=== PATIENT | female | born 2000 | race Caucasian/White ===

== ENCOUNTER 2022-07-30 00:31 | Day surgery (SDC) | payer OTHER, SELFPAY ==
[2022-07-18 09:26] VITALS: BMI 20.2
--- NOTE | 2022-07-18 09:32 | PC.NURSE ---
Report to the Outpatient Waiting Room, entrance under the green pavilion located off [facility], at time 07:30AM on date 07-30-22. Planned Procedure Time: 09:30AM. Time changes happen often and if your time is changed the preop area will call you the afternoon before. - You and your visitor will be asked to self-screen and do not enter if you have any COVID symptoms. - Only one visitor is requested with a max of two and NO children visitors are allowed at this time. - The patient visitor may be requested to leave or wait in car when not with patient due to distancing restrictions. - A mask is optional within the hospital. Patients may have clear liquids (water, carbonated beverages, clear teas, apple juice) until 3 hours prior to surgery (06:30AM) with a maximum of 20 ounces. - No food from midnight until time of surgery. Take the following medications with a SIP of water the morning of surgery: CONTROL Medications to discontinue per physician N/A Please no make-up, nail romanian, hairspray, perfume, deodorant, or body powder the day of surgery. No jewelry (including any body piercings) or valuables the day of surgery, leave them at home. Please take a shower or bath the night before, or the morning of, surgery with an antibacterial soap. Wear comfortable, loose fitting clothing. - Jewelry must be removed prior to entering the operating room. Rings and piercings that are not removed may be cut off. - The hospital will not accept responsibility for valuables. - Please leave all valuables, including medications, at home the day of surgery. If you are going home after surgery, a licensed city driver must drive you home. - NO public transportation without another adult if you receive anesthesia. - We recommend that an adult stay with you for 24 hours following discharge. - We also recommend that you do not drive, make important decision, drink alcoholic beverages, or take any drugs that were not prescribed by your health care provider for at least 24 hours after your discharge time. Follow any additional instructions given to you from your surgeon. If you or anyone in your household have experienced Covid symptoms in the past week, please notify your surgeon or the nurse liaison at the phone number below for possible testing. Telephone instructions given toPand asked if any additional questions and then verbalized understanding. Patient advised to call surgeon office or pre surgery nurse liaison [phone] if any additional questions.
[2022-07-30] VITALS (8 sets, daily range): BP systolic 96–125; BP diastolic 63–79; PULSE 74–105; RESP 12–20; TEMP 36.7–36.9; O2SAT 98–100
[2022-07-30] MEDS: ACETAMINOPHEN 500 MG TABLET 1000 MG PO (08:10)
[2022-07-30] MEDS: LACTATED RINGERS 1,000 ML 30 ML IV CONT (08:18)
--- NOTE | 2022-07-30 08:30 | P.PNAN_ITS ---
Anes - Initial Pre Proc Eval Procedure: Operation Date: 07/30/22 09:30 Proposed Procedures p Bilateral Tonsillectomy - Isacc Valente MD Date/Time: 07/30/22 08:30 Surgeon: Isacc Valente MD Pre Op Diagnosis: Chronic Tonsilitis Patient Data Age: 22 Gender: F Height: 1.6 m Weight: 55.65 kg Last Vital Signs Temp 98.1 F 07/30/22 07:55 Pulse 105 H 07/30/22 07:55 Resp 16 07/30/22 07:55 BP 117/73 07/30/22 07:55 Pulse Ox 99 07/30/22 07:55 O2 Del Method Room Air 07/30/22 07:55 Allergies Allergy/AdvReac Type Severity Reaction Status Date / Time No Known Allergies Allergy Verified 07/30/22 08:07 Home Medications Medication Instructions Recorded Confirmed Type norethindrone acetate 1 mg-ethinyl 1 tablet PO DAILY 07/18/22 07/30/22 History estradiol 20 mcg tablet valacyclovir 1 gram tablet 1 mg PO DAILY 07/18/22 07/30/22 History Patient hx anesthesia problems: none Family hx anesthesia problems: none Results Review: All pre-operative results and documents have been reviewed as part of the pre- operative evaluation. [facility] Social History Social History Smoking status: Never smoker Second hand tobacco smoke exposure: No Alcohol intake: never Substance use: never Substance use type: does not use Living arrangements: with family Spiritual care concerns: No Anes - Eval Final PreProcedure Day of Procedure 07/30/22 08:30 Patient weight: normal Heart: regular rate and rhythm Lungs: clear to auscultation Airway: Mallampati scale class II Neurological: alert and oriented Last oral intake: >/= 8 hours ASA classification: I Emergent: no Anesthetic plan: proceed Anesthesia type and monitoring: general ETT and standard monitoring Results Review: All pre-operative results and documents have been reviewed as part of the pre- operative evaluation. Informed Consent: The patient's anesthetic plan and its attendant risks and benefits were discussed with the patient/family/POA. Questions were solicited and answers provided to the satisfaction of the patient/family/POA.
--- NOTE | 2022-07-30 09:05 | PM.IMHP ---
H&P: HPI History of Present Illness Date/Time: 07/30/22 09:05 Chief Complaint: chronic tonsillitis Review of Systems Review of Systems: All systems reviewed & are unremarkable except as noted in HPI and below [facility] Social History Social History Smoking status: Never smoker Second hand tobacco smoke exposure: No Alcohol intake: never Substance use: never Substance use type: does not use Living arrangements: with family Spiritual care concerns: No Meds Home Medications and Allergies Home Medications Medication Instructions Recorded Confirmed Type norethindrone acetate 1 mg-ethinyl 1 tablet PO DAILY 07/18/22 07/30/22 History estradiol 20 mcg tablet valacyclovir 1 gram tablet 1 mg PO DAILY 07/18/22 07/30/22 History Allergies Allergy/AdvReac Type Severity Reaction Status Date / Time No Known Allergies Allergy Verified 07/30/22 08:07 Vital Signs Vital Signs - 24 hr 07/30/22 07:55 Temperature 36.7 C Pulse Rate 105 H Respiratory Rate 16 Blood Pressure 117/73 Pulse Oximetry 99 Oxygen Delivery Room Air Exam Narrative: 4+ palatinetonsils with stones, cryptic appearance, rest of exam wnl Assessment and Plan Assessment and plan (1) Chronic tonsillitis: Code(s): J35.01 - Chronic tonsillitis Status: Acute Plan Klever is here for tonsillectomy for chronic tonsillitis. r/b/a reviewed, pt understand and agrees to proceed all questions answered. Refer to outpt H&P for full details.
--- NOTE | 2022-07-30 09:07 | WPDHPUPDATE1 ---
History and Physical Update Update Date/Time: 07/30/22 09:07 History and Physical has been reviewed, including an updated exam of the patient. There are NO changes in the patient's condition. Risks, benefits, and alternatives have been discussed and questions answered. Patient agrees to proceed with procedure.
--- NOTE | 2022-07-30 09:07 | W.PM.PROC2 ---
Procedure Note - Detailed Date of Procedure 07/30/22 Pre-op Diagnosis Chronic Tonsilitis Post-op Diagnosis Same Procedure Performed tonsillectomy Surgeon Isacc Valente MD Anesthesia General Indications chronic tonsillitis Findings 3+ tonsils with stones Description of Procedure On the date of procedure the patient was met in the preoperative area and risk and benefits of the procedure reviewed with the patient and parents who elected to proceed with surgery. The patient was brought back to the room by the anesthesia team and placed under general endotracheal anesthesia. Once an adequate plane of anesthesia was obtained a timeout was performed to assure the patient identification the procedure to be performed were correct. The patient was then prepped and draped in the normal fashion for tonsillectomy. A head wrap and shoulder roll were placed. A Skye-Carlos retractor was inserted into the patient's oral cavity and the patient was suspended from the Andre stand. The left tonsil grasped with a curved tonsillar tenaculum retracted medially and removed with electrocautery set on 10 standard. After the tonsil was removed the tonsillar fossa was inspected and no bleeding was noted. The right tonsil was then grasped with a curved tenaculum and retracted medially and removed in an identical manner. The tonsillar fossa was inspected and hemostasis was obtained with suction bovie electrocautery. The patient was taken out of suspension and then placed back into suspension. The tonsillar fossas were once again inspected and no bleeding was noted. A tonsil sponge was used to gently abrade the area and no bleeding was noted. The patient was removed from suspension. The Skye-Carlos retractor was removed from the patient's oral cavity. There was no damage to the patient's teeth or lips. Care of the patient was then returned to anesthesia who extubated in the operating room and transferred the patient to recovery in stable condition without complication. Estimated Blood Loss 0 Drains No Packing No Pathology Yes (right and left tonsil) Complications No immediate complications Condition Stable Disposition PACU
== END 2022-07-30 11:24 | disposition home or self-care (01) ==
PROVIDERS: Visit Provider Otolaryngology
PROC: (CPT 42826; principal; 2022-07-30 09:30)
DX: J35.01 Chronic tonsillitis (principal)
CPT/HCPCS: 42826; 88302; A9270; J0330; J1100; J2250; J2405; J2704; J3010; J7120